=== PATIENT | female | born 1965 | race Caucasian/White ===

== ENCOUNTER 2025-02-03 15:34 | Emergency (ER) | payer OTHER ==
[2025-02-03 16:10] VITALS: BP 155/92; PULSE 100; RESP 18; TEMP 98.7; BMI 24.7
[2025-02-03] MEDS ORDERED: ACETAMINOPHEN 500 MG TABLET (FP) ONE (16:46)
[2025-02-03] MEDS: ACETAMINOPHEN 500 MG TABLET (FP) PO ONE (16:56)
[2025-02-03 17:15] LABS: ABSOLUTE IMMATURE GRANULOCYTES 0.05 x10^3/uL (0.0-0.031); BASOPHILS # 0.03 x10^3/uL (0.01-0.08); EOSINOPHIL % 1.5 % (0.7-5.8); EOSINOPHILS # 0.18 x10^3/uL (0.04-0.36); HEMATOCRIT 40.3 % (34.1-44.9); HEMOGLOBIN 13.3 g/dL (11.2-15.7); MEAN CELL VOLUME 89.4 fl (79.4-94.8); MEAN PLT VOLUME 11.6 fl (9.4-12.3); MONOCYTE # 0.72 x10^3/uL (0.24-0.86); MONOCYTE % 5.9 % (4.7-12.5); PLATELET COUNT 257 x10^3/uL (182-369); RDW 12.7 % (12.4-16.4)
[2025-02-03 17:25] LABS: EPI CELLS 8 /uL (0-25.1); HYALINE CASTS 0 /uL (0-3.1); PH,URINE 5.5 (5.0-8.0); URINE APPEARANCE CLEAR; URINE BACTERIA >9,000 /uL (0-1359); URINE BILIRUBIN NEGATIVE (NEGATIVE); URINE COLOR YELLOW; URINE GLUCOSE (UA) NEGATIVE (NEGATIVE); URINE KETONE NEGATIVE (NEGATIVE); URINE LEUK ESTERASE 1+ (NEGATIVE); URINE NITRITE POSITIVE (NEGATIVE); URINE PROTEIN NEGATIVE (NEGATIVE); URINE RBC 21 /uL (0-23.9); URINE UROBILINOGEN 0.2 mg/dL (0.2-1.0); URINE WBC 25 /uL (0-25.8)
[2025-02-03 17:34] LABS: POTASSIUM 4.1 mmol/L (3.5-5.1)
[2025-02-03 17:36] LABS: CALCIUM 10.4 mg/dL (8.5-10.1)
[2025-02-03 17:37] LABS: ALBUMIN 4.1 g/dl (3.4-5.0); BLOOD UREA NITROGEN 21.7 mg/dL (7-18)
[2025-02-03 17:40] LABS: CREATININE 0.9 mg/dL (0.55-1.3)
[2025-02-03 17:41] LABS: BILIRUBIN,TOTAL 0.6 mg/dL (0.2-1); TOT PROT 7.4 g/dl (6.4-8.2)
[2025-02-03] MEDS ORDERED: CEFTRIAXONE 1 GM/50 ML BAG ONE (17:44)
[2025-02-03] MEDS: CEFTRIAXONE 1,000 MG in DEXTROSE 5%-WATER - 50 ML IVPB ONE (17:54)
[2025-02-03] MEDS: LACTATED RINGERS SOLUTION 1000 ML INFUS.BAG IV ONE (20:02)
== END 2025-02-03 21:49 | disposition home or self-care (01) ==
LOC: JER 15:34
DX: N12 Tubulo-interstitial nephritis, not specified as acute or chronic (principal); M54.50 Low back pain, unspecified; R10.32 Left lower quadrant pain
CPT/HCPCS: 36415; 74176-TC; 80053; 81003; 83690; 85025; 99285-25